=== PATIENT | female | born 1955 | race Caucasian/White ===

== ENCOUNTER 2017-03-09 10:12 | Inpatient (IN) | payer BC ==
--- NOTE | ~2017-03-09 | HP ---
History And Physical [place] [id number] [facility] [place]. [address] NAME: MAGALIE CANALES : 55 STATUS : ADM Elvis PAT#: [id number] AGE: 61 ADM/REG DATE : 03/09/17 MR#: [id number] REPORT SERV DATE: 03/10/17 DICTATED BY: FARIDEH CHAVEZ DATE: 03/10/17 REPORT STATUS : Draft TRANSCRIBED BY: MODL DATE: 03/10/17 DATE OF ADMISSION: 03/09/2017 CHIEF COMPLAINT: Syncopal events. HISTORY OF PRESENT ILLNESS: A very pleasant, 61-year-old, white female with no known history of CAD, states that over the past two weeks she has experienced 4 episodes of near-syncopal or syncopal events, 2 of each. Most recently this past Monday on 03/07/2017, she reports that she passed out at work while sitting at her desk. She states it was brief and that she felt bad for approximately two hours after the event, described as weakness and nausea. She reports some episodic chest pressure with no clear pattern to them and also describes complaints of indigestion all day. She reports JUNIOR especially with taking stairs. Reports episodes of nausea, dizziness, and belching. Denies diaphoresis. Of note, the patient states that she has been hypertensive for approximately 20 years and was worked up many years ago by Dr. Pardeep Wheeler for syncopal and near syncopal events. She reports labile blood pressures of 130-180/70-90 and with elevated blood pressure, she reports episodes of nausea and vomiting. The patient denies any personal history of myocardial infarction, stroke, DVT, or pulmonary embolus. The patient denies any recent fever or chills. No palpitations although she does report two near and two syncopal events recently. Denies PND or orthopnea. The patient was followed by Dr. Pardeep Wheeler for cardiac workup several years ago. Reports that she has had a stress test in the last several years possibly an echo, CT of neck, and ultrasound of carotids. We will request all records. PAST MEDICAL HISTORY: 1. Hypertension. 2. GERD. 3. Denies dyslipidemia or diabetes. PAST SURGICAL HISTORY: None. SOCIAL HISTORY: She is . She does not have any children. She is employed in an office. Does not have a structured exercise routine. Denies tobacco or illicit's. Rarely consumes alcohol. FAMILY HISTORY: Father with CAD and CABG at 70, at the age of 74. Mother of colon cancer. REVIEW OF SYSTEMS: A 14-point review of systems performed, significant for HPI including snores per report with no formal sleep study. Otherwise, complete review of systems obtained and negative. ALLERGIES: AMOXICILLIN CAUSES A RASH. History And Physical [address] [address] NAME: MAGALIE CANALES : 55 STATUS : ADM Elvis PAT#: [id number] AGE: 61 ADM/REG DATE : 03/09/17 MR#: [id number] REPORT SERV DATE: 03/10/17 DICTATED BY: FARIDEH CHAVEZ DATE: 03/10/17 REPORT STATUS : Draft TRANSCRIBED BY: EMERITA DATE: 03/10/17 HOME MEDICATIONS: Amlodipine 2.5 mg daily, Artificial Tears, Mucinex p.r.n., losartan 100 mg daily, Bystolic 20 mg daily (currently on hold, but recently increased from 10 at 20 two weeks ago), Prilosec 40 mg daily, potassium [id number] daily. PHYSICAL EXAMINATION: VITAL SIGNS: Bilateral blood pressures on arrival, right 157/72, left 156/72, this morning 164/77, pulse 61, respirations 18, temperature 98.0, O2 saturation 97% on room air, height 5 feet 5 inches, weight 201 pounds, BMI 33.5. GENERAL: Cooperative, in no apparent distress. HEENT: Pupils 2 mm, sclera nonicteric. Nares patent. Moist mucous membranes. No xanthelasma. NECK: Trachea midline, no thyromegaly. No JVD. No bruits. LYMPH: No cervical lymphadenopathy. No supraclavicular lymphadenopathy. RESPIRATORY: Unlabored respirations. Breath sounds clear bilaterally to posterior auscultation. No wheezes or rhonchi. CARDIOVASCULAR: Regular rate. No murmur, rub or gallop appreciated. Extremities without edema. Pulses 2+ bilaterally. ABDOMEN: Soft, nontender, nondistended, normal bowel sounds auscultated throughout. No organomegaly. SKIN: Warm, dry extremities. No pallor, or cyanosis. PSYCHIATRIC: Appropriate affect. Alert, oriented x3. LABORATORY DATA: Troponin less than 0.02 twice. Potassium 4.1, BUN 9, creatinine 0.96, glucose 99, magnesium 2.5. WBC 9.2, hemoglobin 13.7, hematocrit 40.4, platelet count 325,000. EKG, sinus rhythm (6 second pause noted on overnight telemetry). ASSESSMENT AND PLAN: 1. Syncopal event with documented 6-second pause. The patient has been observed in the CPOU overnight. N.p.o. for possible pacemaker today. Hold beta-jerrica and calcium channel jerrica. EP consult initiated. Transfer to [facility] Service. Further recommendations forthcoming. 2. Chest pain episodic, possibly related to causes. Troponin is negative. EKG appears stable. Address syncopal events and pauses with possible pacemaker implant. Outpatient cardiac testing is warranted. We will request all cardiac records from Dr. Pardeep Wheeler's office for historical medical information. 3. Hypertension. Monitor blood pressure. Avoid herber blocking agents. 4. Cardiology records. We will request records from Dr. Pardeep Wheeler's office. 5. EP consult has been called to Dr. Villareal. Await his input. Further recommendations forthcoming. GLADYS/EMERITA Farideh Chavez, MSN, QUALITY ASSURANCE MONITOR BODY-BC History And Physical [address] [address] NAME: MAGALIE CANALES : 55 STATUS : ADM Elvis PAT#: [id number] AGE: 61 ADM/REG DATE : 03/09/17 MR#: [id number] REPORT SERV DATE: 03/10/17 DICTATED BY: FARIDEH CHAVEZ DATE: 03/10/17 REPORT STATUS : Draft TRANSCRIBED BY: BRANDANL DATE: 03/10/17 / [id number] CC: PRASANNA Lopez, QUALITY ASSURANCE MONITOR BODY-BC
--- NOTE | ~2017-03-09 | CN ---
Consultation Report [facility] [address] [place]. [address] NAME: MAGALIE MEDLEY : 55 STATUS : ADM Elvis PAT#: [id number] AGE: 61 ADM/REG DATE : 03/09/17 MR#: [id number] REPORT SERV DATE: 03/10/17 DICTATED BY: FLORA GRIFFITHS DATE: 03/10/17 REPORT STATUS : Draft TRANSCRIBED BY: MODL DATE: 03/10/17 ELECTROPHYSIOLOGY CONSULTATION DATE OF CONSULTATION: 03/10/2017 REASON FOR CONSULTATION: Syncope and documentation of 6-second pauses. HISTORY OF PRESENT ILLNESS: Ms. Medley is a pleasant 61-year-old woman, who has been having syncopal events over the last several years. In November of this year, the episodes began to get worse and she noted a six- to eight-week period of having about one syncopal event per week. She has a longstanding history of hypertension, and there was some concern from her primary care physician that possibly the hypertension was making the syncope worse and her low-dose Bystolic was increased from 10 to 20 mg. The patient began having further episodes of syncope with the Bystolic. In addition to the above, she also complained of chest discomfort and she was admitted for chest pain through the emergency room. While here on telemetry, she demonstrated a 6-second pause that was symptomatic, in which the patient nearly was syncopal. She was supine at that time. She had very little warning before the episode occurred. She subsequently underwent a cardiac PET imaging, which demonstrated no evidence of ischemia and normal LV systolic function. I have been asked to see her for discussion of potential treatment options including permanent pacemaker. PAST MEDICAL HISTORY: Notable for: 1. Multiple syncopal events over a number of years, but much worse in the last six months as described above. 2. History of refractory hypertension. 3. Chest discomfort of unclear etiology, negative PET imaging on this admission. FAMILY HISTORY: Noncontributory. Negative for premature coronary disease. SOCIAL HISTORY: Negative for tobacco or alcohol. REVIEW OF SYSTEMS: As noted above. All other systems reviewed and negative. PHYSICAL EXAMINATION: VITAL SIGNS: Blood pressure currently 144/70, pulse 66 and regular, respirations 16. GENERAL: Well developed, well nourished. HEENT: No icterus. Good dentition. NECK: Supple. No masses or thyromegaly. LUNGS: Breathing comfortably. No rales or wheezes. COR: Normal S1, S2. No S3 or S4. No murmurs, clicks, rubs. No JVD. ABD: Soft, nondistended, nontender. No hepatosplenomegaly. EXT: No clubbing, cyanosis, or edema. Peripheral pulses 2+/= bilaterally. SKIN: Warm and dry. No visible lesions. Consultation Report [address] [place]. [address] NAME: MAGALIE MEDLEY : 55 STATUS : ADM Elvis PAT#: [id number] AGE: 61 ADM/REG DATE : 03/09/17 MR#: [id number] REPORT SERV DATE: 03/10/17 DICTATED BY: FLORA GRIFFITHS DATE: 03/10/17 REPORT STATUS : Draft TRANSCRIBED BY: EMERITA DATE: 03/10/17 MS: Chest wall without deformity. No obvious clavicular fractures. NEURO/PSYCH: Oriented x3. No anxiety or depression. DATA: EKG demonstrates sinus rhythm, heart rate of 64 beats per minute. Normal HI, QRS, and QT intervals. Probable LVH. No evidence for ischemia or infarction. Demonstration on telemetry of a 6.7-second pause, occurring at 5:12 p.m. LABORATORY VALUES: Unremarkable. Electrolytes, BUN and creatinine within normal limits. White count 9.2, hematocrit of 40. IMPRESSION: The patient with demonstration of profound sinus pauses with symptoms consistent with what she has been experiencing at home. Although she is on Bystolic, she has been on a stable dose up until a few weeks ago and was still having very frequent episodes of syncope. Moreover, on the Bystolic, her heart rates at baseline have been relatively normal. There is a good chance that there may be a vagal overlay to these sinus pauses. However, a treatment for this is very minimal. She is already tried on a beta-jerrica. She cannot take midodrine due to problems with hypertension. I think we would have a good chance of improving her episodes of syncope with a dual-chamber pacemaker, possibly with a rate drop feature that might help to increase the atrial pacing rate during episodes of profound changes in heart rate, consistent with an abrupt increase in vagal tone. I discussed this with the patient and her , who was there as well. I noted how the pacemaker was placed as well as the inherent risks of pacemaker implantation which include, but are not exclusive to bleeding, infection, pneumothorax, cardiac perforation, and risk of . She claims to understand these issues and is willing to proceed. EDA/EMERITA Flora Griffiths M.D. / [id number] CC: Liliya Cooper
[2017-03-09 09:39] LABS: BASOPHILS 0.2 %; BASOPHILS ABSOLUTE 0.02 10/3/uL (0.0-0.16); EOSINOPHILS 0.9 %; EOSINOPHILS ABSOLUTE 0.08 10/3/uL (0.0-0.53); ER CBC TAT 0 Hrs 00 Mins; HEMATOCRIT 40.4 % (36.0-48.0); HEMOGLOBIN 13.7 g/dL (12.0-16.0); IMMATURE GRANULOCYTES 0.2 %; IMMATURE GRANULOCYTES ABSOLUTE 0.02 10/3/uL (0.0-0.11); LYMPHOCYTES 21.1 %; LYMPHOCYTES ABSOLUTE 1.94 10/3/uL (0.67-4.30); MEAN CORPUS HGB CONC 33.9 g/dL (32.0-36.0); MEAN CORPUSCULAR HEMOGLOB 29.1 pg (26.0-34.0); MEAN CORPUSCULAR VOLUME 85.8 fL (80-100); MONOCYTES 6.1 %; MONOCYTES ABSOLUTE 0.56 10/3/uL (0.21-1.20); NEUTROPHILS 71.5 %; NEUTROPHILS ABSOLUTE 6.59 10/3/uL (2.02-8.40); PLATELET COUNT 325 10/3/uL (150-400); RBC DISTRIBUTION WIDTH 13.8 % (12.0-16.0); RED CELL COUNT 4.71 10/6/uL (4.0-5.6); WHITE BLOOD CELLS 9.2 10/3/uL (4.5-10.5)
[2017-03-09 09:40] LABS: MANUAL DIFF NO %
[2017-03-09 09:47] LABS: PARTIAL THROMBO TIME 24.6 SEC (22.5-37.2); PROTIME (NOT ORD) 13.3 SEC (12.0-14.5)
[2017-03-09 09:59] LABS: BUN (BLOOD UREA NITROGEN) 9 MG/DL (6-23); CALCIUM, SERUM 9.3 MG/DL (8.5-10.4); CHEST PAIN PROFILE TAT 0 Hrs 23 Mins; CHLORIDE, SERUM 109 MMOL/L (96-112); CO2 (CARBON DIOXIDE) 23 MMOL/L (24-34); CREATININE 0.96 MG/DL (0.55-1.02); GFR AFRICAN AMERICAN 74 ML/MIN (>=60); GFR NON AFRICAN AMERICAN 64 ML/MIN (>=60); GLUCOSE, SERUM 99 MG/DL (60-99); POTASSIUM, SERUM 4.1 MMOL/L (3.5-5.3); SODIUM, SERUM 144 MMOL/L (135-148); TROPONIN I <0.02 NG/ML (<0.05)
[2017-03-09] MEDS ORDERED: MUCINEX600 MG PO (12:57)
[2017-03-09] MEDS ORDERED: BYSTOLIC20 MG PO (12:57)
[2017-03-09] MEDS ORDERED: POTASSIUM OTC PO (12:58)
[2017-03-09] MEDS ORDERED: MOMTAB PO (12:58)
[2017-03-09] MEDS ORDERED: TEARS PLUS OPH (12:59)
[2017-03-09] MEDS ORDERED: COZAAR100 MG PO (12:59)
[2017-03-09] MEDS ORDERED: PRILOSEC40 MG PO (13:00)
[2017-03-09] MEDS ORDERED: NORV25 PO (13:00)
[2017-03-10 18:23] LABS: FREE T4 0.95 NG/DL (0.76-1.46); ULTRASENSITIVE TSH 3.01 MCIU/ML (0.358-3.740)
[2017-03-11 04:20] LABS: BUN (BLOOD UREA NITROGEN) 11 MG/DL (6-23); CALCIUM, SERUM 8.7 MG/DL (8.5-10.4); CHLORIDE, SERUM 102 MMOL/L (96-112); CO2 (CARBON DIOXIDE) 27 MMOL/L (24-34); CREATININE 1.03 MG/DL (0.55-1.02); GFR AFRICAN AMERICAN 68 ML/MIN (>=60); GFR NON AFRICAN AMERICAN 59 ML/MIN (>=60); GLUCOSE, SERUM 104 MG/DL (60-99); POTASSIUM, SERUM 3.7 MMOL/L (3.5-5.3); SODIUM, SERUM 138 MMOL/L (135-148)
[2017-03-11] MEDS ORDERED: HYDROCHLOROT25 MG PO (09:26)
== END 2017-03-11 10:15 | disposition home or self-care (01) | DRG 244 ==
LOC: ER 10:12 → CDU1 14:13
PROVIDERS: Clinical Nurse Specialist; Hospitalist
PROC: 0JH606Z Insertion of Pacemaker, Dual Chamber into Chest Subcutaneous Tissue and Fascia, Open Approach (ICD-10-PCS; principal; 2017-03-10)
PROC: 02H63JZ Insertion of Pacemaker Lead into Right Atrium, Percutaneous Approach (ICD-10-PCS; 2017-03-10)
PROC: 02HK3JZ Insertion of Pacemaker Lead into Right Ventricle, Percutaneous Approach (ICD-10-PCS; 2017-03-10)
DX: I49.5 Sick sinus syndrome (principal); I10 Essential (primary) hypertension; R55 Syncope and collapse; K21.9 Gastro-esophageal reflux disease without esophagitis; Z88.0 Allergy status to penicillin
CPT/HCPCS: 33208; 71010; 78492; 80048; 82962; 83735; 84439; 84443; 84484; 85025; 85610; 85730; 93005; 93017; 96374; 96375; 96376; 99285; A9270-GY; A9555; C1785; C1892; C1898; C8929; G0378; J0280; J0360; J0690; J2250; J2405; J2785; J3010; Q9957; Q9967